=== PATIENT | male | born 1960 | race Caucasian/White ===

== ENCOUNTER → 2021-03-08 | Day surgery (SDC) | payer OTHER ==
[~2021-03-08] VITALS: Ht 180.3 cm; Wt 86.2 kg
[~2021-03-08] MED LIST: COZAAR100 MG PO; LOVASTATIN40 MG PO; PERCOCET 5-3251 EACH PO; VITAMIN C500 M5 PO; VITAMIN D325 MC1 PO
[2021-03-08 12:00] LABS: BUN/CREAT RATIO (CALC) 14.9 RATIO; CREATININE 0.67 mg/dL (0.67-1.17); POTASSIUM 4.1 mmol/L (3.5-5.1)
== END | disposition home or self-care (01) ==
LOC: FAS 10:52
PROVIDERS: Anesthesiology
DX: M75.121 Complete rotator cuff tear or rupture of right shoulder, not specified as traumatic (principal); M75.41 Impingement syndrome of right shoulder; M75.51 Bursitis of right shoulder; Z88.5 Allergy status to narcotic agent
CPT/HCPCS: 36415; 80048; C1713; J0171; J0690; J1100; J1885; J2250; J2370; J2405; J2704; J2795; J7120